=== PATIENT | female | born 1930 | race African-American/Black ===

== ENCOUNTER 2020-08-05 07:32 | Inpatient (IN) | payer MEDICARE ==
[2020-08-05] VITALS (9 sets, daily range): BP systolic 86–137; BP diastolic 48–65
[~2020-08-05] VITALS: Ht 160 cm; Wt 86.0 kg
[2020-08-05] MEDS: MIDAZOLAM 100mg/100ml NS BAG 100 ML IV PRN ×2 (07:50→20:02)
[2020-08-05] MEDS ORDERED: IV NORMAL SALINE 1000ML BAG 1,000 ML IV ONE ×3 (08:00→09:30)
[2020-08-05 08:02] LABS: BASO # 0.1 x10^3/uL (0.0-0.2); BASO % 0 % (0-3); EOS % 0 % (0-3); HEMATOCRIT 48.2 % (36.0-47.0); HEMOGLOBIN 15.9 g/dL (12.0-15.5); LYMPH # 0.9 x10^3/uL (1.0-4.8); LYMPH % 6 % (24-48); MEAN CORPUSCULAR HEMOGLOBIN 30 pg (25-35); MEAN CORPUSCULAR HGB CONC 33 g/dL (31-37); MEAN CORPUSCULAR VOLUME 90 fL (79-100); MONO # 1.4 x10^3/uL (0.0-1.1); MONO % 9 % (0-9); NEUT # 13.1 x10^3/uL (1.8-7.7); NEUT % 85 % (31-73); PLATELET COUNT 200 x10^3/uL (140-400); RED BLOOD COUNT 5.34 x10^6/uL (3.50-5.40); RED CELL DISTRIBUTION WIDTH 14.8 % (11.5-14.5); WHITE BLOOD COUNT 15.5 x10^3/uL (4.0-11.0)
[2020-08-05 08:10] LABS: CALCIUM 11.7 mg/dL (8.5-10.1); CREATININE 4.7 mg/dL (0.6-1.0); GFR 10.6; POTASSIUM 5.1 mmol/L (3.5-5.1)
[2020-08-05 08:12] LABS: PROTHROMBIN TIME PATIENT 17.5 SEC (11.7-14.0)
[2020-08-05] MEDS ORDERED: PIPERACILLIN/TAZOBACTAM 3.375 GM in IV NORMAL SALINE 50ML 50 ML IV ONE (08:15)
--- NOTE | 2020-08-05 08:17 | PHYS DOC ---
Past Medical History Past Medical History: Hypertension General Adult EDM: Chief Complaint: ALTERED MENTAL STATUS HPI: HPI: Patient is a 89 year old female who was brought here by EMS from home after she was found unresponsive in her bed this morning by her granddaughter. Patient was just taken out from the penitentiary in [place], moving up here last week. Patient was admitted at a local hospital in [place] on June 28, 2020 due to confusion and hallucination. She was then transferred to the penitentiary unit in the hospital there. Her family brought her up here on July 27, 2020. She has history of hypertension, she is allergic to codeine and caffeine. Her family stated that for the last few day she had not been eating or drinking much. Her granddaughter checked on her at 3 AM this morning, she was sleeping heavily. Then this morning she checked on her again and the patient was unresponsive. EMS could not put an IV in her, patient was unresponsive when they got there. EMS put a nonrebreather on her and brought her here emergently. Upon arrival to the ER room, patient was in severe respiratory distress, very faint pulse, skin was cold and clammy, not responsive to verbal or pain, no gag reflex, not able to obtain blood pressure.... Review of Systems: Review of Systems: Not able to obtain due to unresponsiveness. Heart Score: Risk Factors: Risk Factors: DM, Current or recent (<one month) smoker, HTN, HLP, family history of CAD, obesity. Risk Scores: Score 0 - 3: 2.5% MACE over next 6 weeks - Discharge Home Score 4 - 6: 20.3% MACE over next 6 weeks - Admit for Clinical Observation Score 7 - 10: 72.7% MACE over next 6 weeks - Early Invasive Strategies Current Medications: Current Medications Medications (Trade) Dose Ordered Sig/Jamie Start Time Stop Time Status Last Admin Dose Admin Chlorhexidine Gluconate (Peridex) 15 ml BID 08/05/20 09:00 Midazolam HCl 100 ml @ 0 mls/hr CONT PRN 08/05/20 08:00 Piperacillin Sod/ Tazobactam Sod 3.375 gm/Sodium Chloride 50 ml @ 100 mls/hr 1X ONCE 08/05/20 08:15 08/05/20 08:44 Sodium Chloride 1,000 ml @ 1,000 mls/hr 1X ONCE 08/05/20 08:00 08/05/20 08:59 Allergies: Allergies: Allergies Coded Allergies Type Severity Reaction Last Updated Verified Unable to Assess 08/05/20 No Physical Exam: PE: Constitutional: appeared cachectic, very frail and toxic. HENT: Normocephalic, atraumatic, bilateral external ears normal, oropharynx moist with thick mucus secretion, whitish mucus in both nares. Eyes: pupils were fixed, nonreactive.... Neck: Normal range of motion with JVD bilaterally... Cardiovascular:tachycardia, regular rhythm, no murmur [] Lungs & Thorax: Bilateral breath sounds with rales, decrease air movement, laborous breathing... Abdomen: Bowel sounds normal, soft, no masses, no pulsatile masses. [] Skin:cold and clammy. Back:no evidence of injury. Extremities: no evidence of injury, Neurologic:patient was unresponsive to pain or verbal stimuli... Psychologic not able to obtain due to unresponsiveness. Current Patient Data: Labs: Laboratory Tests Test 08/05/20 07:50 White Blood Count 15.5 x10^3/uL Red Blood Count 5.34 x10^6/uL Hemoglobin 15.9 g/dL Hematocrit 48.2 % Mean Corpuscular Volume 90 fL Mean Corpuscular Hemoglobin 30 pg Mean Corpuscular Hemoglobin Concent 33 g/dL Red Cell Distribution Width 14.8 % Platelet Count 200 x10^3/uL Neutrophils (%) (Auto) 85 % Lymphocytes (%) (Auto) 6 % Monocytes (%) (Auto) 9 % Eosinophils (%) (Auto) 0 % Basophils (%) (Auto) 0 % Neutrophils # (Auto) 13.1 x10^3/uL Lymphocytes # (Auto) 0.9 x10^3/uL Monocytes # (Auto) 1.4 x10^3/uL Eosinophils # (Auto) 0.0 x10^3/uL Basophils # (Auto) 0.1 x10^3/uL Platelet Estimate Pending Prothrombin Time 17.5 SEC Prothromb Time International Ratio 1.5 Activated Partial Thromboplast Time 30 SEC Sodium Level 149 mmol/L Potassium Level 5.1 mmol/L Chloride Level 110 mmol/L Carbon Dioxide Level 22 mmol/L Anion Gap 17 Blood Urea Nitrogen 89 mg/dL Creatinine 4.7 mg/dL Estimated GFR (Cockcroft-Gault) 10.6 BUN/Creatinine Ratio 19 Glucose Level 149 mg/dL Lactic Acid Level 2.8 mmol/L Calcium Level 11.7 mg/dL Magnesium Level 2.5 mg/dL Total Bilirubin 1.9 mg/dL Aspartate Amino Transf (AST/SGOT) 92 U/L Alanine Aminotransferase (ALT/SGPT) 61 U/L Alkaline Phosphatase 103 U/L Troponin I Quantitative 0.083 ng/mL XN-Ziw-B-Type Natriuretic Peptide 3013 pg/mL Total Protein 6.7 g/dL Albumin 2.6 g/dL Albumin/Globulin Ratio 0.6 Current Medications Medications (Trade) Dose Ordered Sig/Jamie Route PRN Reason Start Time Stop Time Status Last Admin Dose Admin Sodium Chloride 1,000 ml @ 1,000 mls/hr 1X ONCE IV 08/05/20 08:00 08/05/20 08:59 DC 08/05/20 07:42 Chlorhexidine Gluconate (Peridex) 15 ml BID MM 08/05/20 09:00 Midazolam HCl 100 ml @ 0 mls/hr CONT PRN IV SEE PROTOCOL 08/05/20 08:00 08/05/20 07:50 Sodium Chloride 1,000 ml @ 1,000 mls/hr 1X ONCE IV 08/05/20 08:00 08/05/20 08:59 DC 08/05/20 08:00 Piperacillin Sod/ Tazobactam Sod 3.375 gm/Sodium Chloride 50 ml @ 100 mls/hr 1X ONCE IV 08/05/20 08:15 08/05/20 08:44 DC 08/05/20 08:15 Dopamine HCl/ Dextrose 250 ml @ As Directed STK-MED ONCE IV 08/05/20 09:02 08/05/20 09:02 DC Dopamine HCl/ Dextrose 250 ml @ 16.125 mls/ hr 1X ONCE IV 08/05/20 09:00 08/06/20 00:30 08/05/20 09:12 Norepinephrine Bitartrate 8 mg/ Dextrose 258 ml @ 16.641 mls/ hr CONT PRN PRN IV BP, SEE COMMENTS 08/05/20 09:15 08/05/20 09:25 Vancomycin HCl (Vanco Per Pharmacy) 1 each PRN DAILY PRN MC SEE COMMENTS 08/05/20 09:30 UNV Sodium Chloride 1,000 ml @ 1,000 mls/hr 1X ONCE IV 08/05/20 09:30 08/05/20 10:29 DC 08/05/20 10:30 Vancomycin HCl 2 gm/Sodium Chloride 500 ml @ 250 mls/hr 1X ONCE IV 08/05/20 10:00 08/05/20 11:59 08/05/20 10:25 Ondansetron HCl (Zofran) 4 mg PRN Q8HRS PRN IV NAUSEA/VOMITING 08/05/20 10:30 08/06/20 10:29 UNV Sodium Chloride 1,000 ml @ 125 mls/hr Q8H IV 08/05/20 10:26 08/06/20 10:25 UNV EKG: EKG: [] Radiology/Procedures: Radiology/Procedures: Intubation procedure: Indication: Respiratory failure Consent: Unable to give consent due to emergent nature. Medications Used: see nursing note Procedure: The patient was placed in the appropriate position. Intubation was performed BY ILLUMINATOR STUDENT UNDER THE SUPERVISION OF THIS PHYSICIAN, 7.5, ET tube was secured 22 at lip. Initial confirmation of placement included bilateral breath sounds, tube fogging, adequate chest rise, adequate pulse oximetry reading. A chest x-ray to verify correct placement of the tube showed appropriate tube position. Complications: none. [facility] [address] [place] [address] IMAGING REPORT Signed PATIENT: LAURENT SUÁREZ ACCOUNT: [id number] : 1930 LOCATION: ER AGE: 89 SEX: F EXAM STATUS: REG ER ORD. PHYSICIAN: LYNDSEY LEYVA DO REASON: soa, post intubation PROCEDURE: PORTABLE CHEST 1V Examination: PORTABLE CHEST 1V History: Reason: soa, post intubation / Spl. Instructions: / History: Comparison/Correlation: 05/05/2011 Portable Chest X-ray Exam Findings: Portal supine frontal view of the chest was obtained. Tracheal tube terminates 3.7 cm from the alexander. Enteric tube distal extent is not included on this exam. Heart size and pulmonary vasculature are normal. Opacification of the right lateral mid thoracic level is present. Small focal left midthoracic infiltrate No pneumothorax. Right glenohumeral joint degenerative changes present. Impression: Right lateral mid thoracic region consolidation. Small focal left midthoracic infiltrate. Interval follow-up to assess resolution recommended. Electronically signed by: Luis Felipe Clifford MD (08/05/2020 8:39 AM) [id number] Central Line placement Procedure. Indication: Vascular access Consent: emergent consent... Procedure: The patient was positioned appropriately and the skin over the right Interna jugular area was prepped and draped in a sterile fashion. Local anesthesia was not used, patient was unresponsive, intubated, on the ventilator. Ultrasound guidance utilized. A large bore needle was used to identify the vein. A guide wire was then inserted into the vein through the needle. A triple lumen catheter was then inserted into the vessel over the guide wire using the Seldinger technique. All ports showed good, free flowing blood return and were flushed with saline solution. The catheter was then securely fastened to the skin with sutures and covered with a sterile dressing. A post procedure X-ray was ordered. Complications: right side pneumothorax. [facility] [address] [place], [place] [id number] IMAGING REPORT Signed PATIENT: LAURENT SUÁREZ ACCOUNT: [id number] : 1930 LOCATION: ER AGE: 89 SEX: F EXAM STATUS: REG ER ORD. PHYSICIAN: LYNDSEY LEYVA DO REASON: Right side IJ CVL placement PROCEDURE: CHEST AP ONLY Examination: CHEST AP ONLY History: Right side IJ CVL placement Comparison: Portable chest x-ray performed earlier on the same day. Findings: AP portable supine frontal view of the chest was obtained. Right internal jugular catheter terminates at the superior cavoatrial junction. Tracheostomy tube terminates 3.5 cm from the alexander. Enteric tube is identified. The cardiomediastinal silhouette is normal. There is mediastinal shift to the left however. Right-sided pneumothorax appears to be small to moderate in size on this supine image. Pneumothorax is visualized at the right lung base as well as at the apical level. Consolidation of the right lung laterally again noted. Left lung infiltrate previously mentioned is not definitely seen. IMPRESSION: Right-sided tension pneumothorax upon placement of right internal catheter in the interval. Consolidation on the right lateral midlung again seen. 08/05/2020 9:45 AM referring ED physician was informed. Electronically signed by: Luis Felipe Clifford MD (08/05/2020 9:46 AM) [id number] DICTATED and SIGNED BY: LUIS FELIPE CLIFFORD MD DATE: 08/05/20 0946 Chest tube placement procedure: Indication: right side pneumothorax Consent: emergent consent. Procedure: The patient was placed in an appropriate position. Patient was unresponsive, intubated An incision (1 cm) was made at midl auxillary line in the 4th intercostal space. Blunt dissection up and over the rib was performed until access was obtained into the pleural cavity. A COOK 9.0 [place] chest tube was placed and connected to PLEURIVAC. Initial output from the tube was MINIMAL. The tube was sutured in place and the site was covered with an occlusive dressing. All connections were banded. Breath sounds after the procedure WERE HEARD. A chest x-ray was obtained to evaluate placement [X-RAY]. Complications: none. [facility] [address] [place], [place] [id number] IMAGING REPORT Signed PATIENT: LAURENT SUÁREZ ACCOUNT: [id number] : 1930 LOCATION: ER AGE: 89 SEX: F EXAM STATUS: REG ER ORD. PHYSICIAN: LYNDSEY LEYVA DO REASON: chest tube adjustment PROCEDURE: CHEST AP ONLY EXAM: CHEST 1 VIEW History: Chest tube placement COMPARISON: 08/05/2020 TECHNIQUE: Single portable radiograph of the chest Findings/ impression: The ET tube, feeding tube, right internal jugular line, identified. Right-sided chest tube tip is identified in the right apical lung. Trace right apical pneumothorax is identified.. Mild bibasilar lung airspace opacities likely atelectasis or infiltrates. Consolidation or mass in the right midlung zone again identified. Electronically signed by: Wale Acharya MD (08/05/2020 10:23 AM) [id number] DICTATED and SIGNED BY: WALE ACHARYA MD DATE: 08/05/20 1023 Course & Med Decision Making: Course & Med Decision Making Pertinent Labs and Imaging studies reviewed. (See chart for details) Patient is an 89-year-old female who was found unresponsive at home by her family, EMS brought her here for evaluation emergently, no IV access was achieved by EMS, blood pressure was not able to measure. Patient was unresponsive to verbal or painful stimuli, she had no gag reflex upon arrival to ER. Her pupils were fixed and not responsive. A small 22-gauge IV was placed on the right hand, patient was given a liter of saline through the IV. Patient was intubated. After 1 L normal saline, her pulse was very weak, blood pressure was not able to detect. Patient appeared to be in septic shock with clammy skin.. Central venous line was needed urgently so that we can start her on pressors to raise her blood pressure. An attempt to place central venous catheter on the right IJ was not successful because the ultrasound machine in the ED was not functional. An attempt to place the central line in the right IJ was unsuccessful without ultrasound guidance. Interventional radiology department was able to lend us the ultrasound machine. With ultrasound guidance, 7 [place] triple-lumen catheter was able to place in the right IJ without any problem. However post procedure chest x-ray shown large pneumothorax on the right side. A small Cook catheter chest tube was placed on the right side, chest x-ray showed very small apical pneumothorax on the right side. Patient was in septic shock with acute renal failure, hospital-acquired pneumonia, her blood pressure was still very low despite 2 different pressors. Patient condition is very guarded, her family was notified of her condition and prognosis. Discussed with the hospitalist on-call Dr. Guerrero who agrees to admit the patient. Critical care time was [60] minutes which includes time at bedside, spent in discussion of patient's care with specialist and/or family members, with interpretation of laboratory and/or radiological studies and is exclusive of procedures. Dragon Disclaimer: Dragon Disclaimer: This electronic medical record was generated, in whole or in part, using a voice recognition dictation system. Departure Departure Impression: Primary Impression: Respiratory failure Additional Impressions: Septic shock HCAP (healthcare-associated pneumonia) Renal failure Iatrogenic pneumothorax Person under investigation for COVID-19 Disposition: 09 ADMITTED INPT THIS HOSP Admitting Physician: [place] (DR. WARNER) Condition: GUARDED Referrals: NO PCP (PCP) LYNDSEY LEYVA DO Aug 05, 2020 08:17
[2020-08-05 08:29] LABS: ALBUMIN 2.6 g/dL (3.4-5.0); ALBUMIN/GLOBULIN RATIO 0.6 (1.0-1.7); MAGNESIUM 2.5 mg/dL (1.8-2.4); TOTAL BILIRUBIN 1.9 mg/dL (0.2-1.0); TOTAL PROTEIN 6.7 g/dL (6.4-8.2)
--- NOTE | 2020-08-05 08:42 | RAD ---
Examination: PORTABLE CHEST 1V History: Reason: soa, post intubation / Spl. Instructions: / History: Comparison/Correlation: 05/05/2011 Portable Chest X-ray Exam Findings: Portal supine frontal view of the chest was obtained. Tracheal tube terminates 3.7 cm from the alexander. Enteric tube distal extent is not included on this exam. Heart size and pulmonary vasculature are normal. Opacification of the right lateral mid thoracic level is present. Small focal left midthoracic infiltrate No pneumothorax. Right glenohumeral joint degenerative changes present. Impression: Right lateral mid thoracic region consolidation. Small focal left midthoracic infiltrate. Interval follow-up to assess resolution recommended. Electronically signed by: Luis Felipe Juares MD (08/05/2020 8:39 AM) [id number]
[2020-08-05 08:47] LABS: BASE EXCESS ABG -9 mmol/L (-3-3); HCO3 ABG 14 mmol/L (21-28); PCO2 ABG 21 mmHg (35-46); PO2 ABG 470 mmHg (65-108); SAT O2 ABG 99 % (92-99)
[2020-08-05] MEDS ORDERED: CHLORHEXIDINE 0.12% 15 ML MOUTHWASH. MM SCH (09:00)
[2020-08-05] MEDS ORDERED: NOREPINEPHRINE VIAL 8 MG in IV DEXTROSE 5% 250 ML IV PRN (09:15)
[2020-08-05] MEDS ORDERED: VANCOMYCIN PER PHARMACY MC PRN (09:30)
--- NOTE | 2020-08-05 09:49 | RAD ---
Examination: CHEST AP ONLY History: Right side IJ CVL placement Comparison: Portable chest x-ray performed earlier on the same day. Findings: AP portable supine frontal view of the chest was obtained. Right internal jugular catheter terminates at the superior cavoatrial junction. Tracheostomy tube terminates 3.5 cm from the alexander. Enteric tube is identified. The cardiomediastinal silhouette is normal. There is mediastinal shift to the left however. Right-sided pneumothorax appears to be small to moderate in size on this supine image. Pneumothorax is visualized at the right lung base as well as at the apical level. Consolidation of the right lung laterally again noted. Left lung infiltrate previously mentioned is not definitely seen. IMPRESSION: Right-sided tension pneumothorax upon placement of right internal catheter in the interval. Consolidation on the right lateral midlung again seen. 08/05/2020 9:45 AM referring ED physician was informed. Electronically signed by: Luis Felipe Juares MD (08/05/2020 9:46 AM) [id number]
[2020-08-05] MEDS ORDERED: VANCOMYCIN 2 GM in IV NORMAL SALINE 500ML BAG 500 ML IV ONE (10:00)
--- NOTE | 2020-08-05 10:24 | RAD ---
AP chest. HISTORY: Chest tube placement, pneumothorax AP view was taken of the chest. Endotracheal tube and NG tube remain in good position. Central line is unchanged. There is a new right chest tube. There is a small residual pneumothorax with interval improvement compared to the previous film. IMPRESSION: 1. Right chest tube with improved pneumothorax. 2. Other tubes and lines unchanged. Electronically signed by: Freedom Solomon MD (08/05/2020 10:21 AM) [id number]
[2020-08-05] MEDS ORDERED: IV NORMAL SALINE 1000ML BAG 1,000 ML IV SCH ×2 (10:26→19:49)
--- NOTE | 2020-08-05 10:26 | RAD ---
EXAM: CHEST 1 VIEW History: Chest tube placement COMPARISON: 08/05/2020 TECHNIQUE: Single portable radiograph of the chest Findings/ impression: The ET tube, feeding tube, right internal jugular line, identified. Right-sided chest tube tip is identified in the right apical lung. Trace right apical pneumothorax is identified.. Mild bibasilar lung airspace opacities likely atelectasis or infiltrates. Consolidation or mass in the right midlung zone again identified. Electronically signed by: Wale Acharya MD (08/05/2020 10:23 AM) [id number]
[2020-08-05] MEDS ORDERED: ONDANSETRON PF 4 MG/2 ML VIAL. IV PRN (10:30)
[2020-08-05 10:42] LABS: BILIRUBIN,URINE SMALL (NEG); CLARITY,URINE TURBID; NITRITE,URINE POSITIVE (NEG); PH,URINE 5.5 (<5.0-8.0); PROTEIN,URINE NEGATIVE (NEG-TRACE); UROBILINOGEN,URINE 0.2 mg/dL (0.2 mg/dL)
[2020-08-05 10:53] LABS: INFLUENZA A PATIENT NEGATIVE (NEGATIVE); INFLUENZA B PATIENT NEGATIVE (NEGATIVE)
[2020-08-05 10:59] LABS: COLOR,URINE BROWN; HYALINE CASTS, URINE MODERATE /HPF
[2020-08-05 11:03] LABS: AMORPHOUS SEDIMENT,UR PRESENT /HPF; BACTERIA,URINE FEW /HPF (0-FEW)
[2020-08-05 11:16] LABS: FIO2 ABG 100% VENT
[2020-08-05 11:22] LABS: % BANDS 2 % (0-9); % LYMPHS 11 % (24-48); % MONOS 3 % (0-10); % SEGS 84 % (35-66)
[2020-08-05 11:23] LABS: PLT ESTIMATE ADEQUATE (ADEQUATE)
[2020-08-05] MEDS ORDERED: EPINEPHrine SYRINGE 1 MG/10 ML SYRINGE ONE (12:00)
[2020-08-05] MEDS ORDERED: SODIUM BICARB ADULT 8.4% 50 MEQ/50 ML DISP.SYRIN. ONE (12:00)
--- NOTE | 2020-08-05 12:32 | HP ---
ADMIT DATE: 08/05/2020 CHIEF COMPLAINT: Found down. HISTORY OF PRESENT ILLNESS: The patient is a pleasant 89-year-old female who was at a fpc in [place]. Her granddaughter went to pick her up and brought her back to [place]. She has been here for about a month. Her granddaughter states she has been declining each day. Today, when she found the patient, she was unresponsive, 911 was called. Her blood pressure was critically low, they could not even get an IV started. When she got to the ER, we did place a central line, but that caused a little pneumothorax. We have now placed a chest tube. The patient's pressure is 70/40. She is on Levophed and dopamine. She is critically ill. I discussed the case with the ER doctor. We have intubated her. She is going to the ICU. The granddaughter is here, she is considering making the patient DNR, but at this point, she is full code and extremely critically ill. PAST MEDICAL HISTORY: Probable early failure to thrive, hypertension. ALLERGIES: CODEINE. FAMILY HISTORY: Diabetes. SOCIAL HISTORY: She does not drink, smoke or take drugs. She lives with her granddaughter. She was in a fpc recently. MEDICATIONS: Reviewed, please refer to the MRAD. REVIEW OF SYSTEMS: Unable to obtain. The patient is on the vent. PHYSICAL EXAMINATION: VITALS: Within normal limits and are stable. GENERAL: She is sedated. HENT: She has an ET tube in place. EYES: Extraocular muscles are intact, pupils are equally round and reactive to light and accommodation. MUSCULOSKELETAL: Well developed, well nourished, good range of motion. ENDOCRINE: No thyromegaly was palpated. LYMPHATICS: No cervical chain or axillary nodes were noted. HEMATOPOIETIC: No bruising. NECK: Supple, no JVD, no thyromegaly was noted. LUNGS: She has bibasilar crackles. She is on the vent with assist control and 100% FiO2. HEART: RRR, S1, S2 present. Peripheral pulses intact, no obvious murmurs were noted. ABDOMEN: Soft, nontender. Positive bowel sounds no organomegaly, normal bowel sounds. EXTREMITIES: Without any cyanosis, clubbing, or edema. Pedal pulses intact, Homans sign is negative. NEUROLOGIC: She is sedated. PSYCHIATRIC: Unobtainable. SKIN: No ulcerations or rashes, good skin turgor, no jaundice. VASCULAR: Good capillary refill, neurovascular bundle appears to be intact. LABORATORY DATA: White count 15, hemoglobin 15, platelets 200. Electrolytes: Sodium 149, potassium 5.1, chloride 110, bicarbonate 22, BUN 89, creatinine 4.7, glucose 149. Urinalysis, small amount of leukocyte esterase, 11-20 white cells. INR is 1.5. Influenza testing is negative. Chest x-ray shows right mid thoracic consolidation and a small left mid thoracic infiltrate. Post-procedure, she did have a small pneumothorax. ASSESSMENT AND PLAN: Respiratory failure, probable sepsis, critical hypotension, hypoxia, abnormal chest x-ray, renal failure, leukocytosis. The patient is being admitted to the ICU. Consult Pulmonary Medicine. Consult Nephrology. Consult Infectious Disease. IV antibiotics. She is full code for now, but the granddaughter is considering DNR. Swab for COVID-19. IV Levophed, IV dopamine, IV vancomycin. Prognosis extremely guarded at best. She is critically ill. TOTAL TIME: 32 minutes. RAHUL WARNER DO DR: HANY/sri JOB#: [id number] / [id number]
[2020-08-05] MEDS ORDERED: ETOMIDATE 20 MG/10 ML VIAL. IV ONE (12:33)
[2020-08-05] MEDS ORDERED: SUCCINYLCHOLINE 200 MG/10 ML VIAL. ONE (12:34)
[2020-08-05] MEDS: VASOPRESSIN 20 UNIT in IV DEXTROSE 5% 100ML 100 ML IV PRN ×2 (12:45→20:01)
[2020-08-05] MEDS: NOREPINEPHRINE VIAL 32 MG in IV D5W 250ML IV PRN ×3 (12:45→20:02)
--- NOTE | 2020-08-05 13:52 | NUR ---
RECEIVED REPORT FROM VENUS ANDRADE AT BEDSIDE. PT ADMITTED TO ICU ROOM 8 FROM ED. PT INTUBATED AND ON MECHANICAL VENTILATION WITH NG TUBE AND ALLRED IN PLACE. RIGHT CHEST TUBE IN PLACE AND IS TO -20CM SUCTION. PT ON SEVERAL PRESSORS TO KEEP BP UP HOWEVER PT REMAINS HYPOTENSIVE AND CARDIAC RHYTHM IRREGULAR AND FAST. DR. WARNER SPOKE WITH SON RUY ABOUT POOR PROGNOSIS HOWEVER THE PT'S SON WISHES FULL CODE AT THIS TIME. BED LOW AND LOCKED, SIDE RAILS UP X4. WILL CONTINUE TO ASSESS.
[2020-08-05] MEDS ORDERED: PIPERACILLIN/TAZOBACTAM 2.25 GM in IV NORMAL SALINE 50ML 50 ML IV SCH (14:00)
[2020-08-05] MEDS ORDERED: PIP/TAZO PER PHARMACY MC PRN (14:00)
--- NOTE | 2020-08-05 14:05 | CONS ---
DATE OF CONSULTATION: 08/05/2020 REFERRING PHYSICIAN: Dr. Burnett. REASON FOR CONSULTATION: Antibiotic management. HISTORY OF PRESENT ILLNESS: An 89-year-old female who is currently in ICU at [facility] intubated on pressors. Unable to give history. History obtained from medical chart and staff. The patient was brought by EMS from home after she was found unresponsive in her bed this morning by family. The patient is resident of [facility] and was brought here by her family. EMS was unable to get an IV, they placed her on nonrebreather. She was intubated in the ER for severe respiratory distress. The patient was unresponsive on presentation with no gag reflex and not able to obtain any blood pressure, white count was 15.5, temperature of 98.3, blood pressure was 93/59. The patient had chest x-ray, which showed right lateral mid thoracic region consolidation. Subsequent x-ray after right IJ placement showed right sided tension pneumothorax. The patient underwent right sided chest tube placement. She received a dose of IV vancomycin and Zosyn. White count was 15.5, hemoglobin of 15.9, hematocrit 48.2, platelets of 200. Creatinine of 4.7, lactate of 2.8. Troponin of 0.083. BNP of 3013. Albumin of 2.6. ID consult has been requested for further antibiotic management. The patient's family is considering making the patient DNR. The patient is critically ill, on pressure support. PAST MEDICAL HISTORY: History of hypertension. REVIEW OF SYSTEMS: Unable to obtain. ALLERGIES: CODEINE. PHYSICAL EXAMINATION: VITAL SIGNS: Temperature 98.3, pulse 118, respiratory rate 20, pulse 95%. Unable to obtain blood pressure reading per nurse. HEENT: ET tube in place, sedated. NECK: Supple. LUNGS: Coarse breath sounds, CTS in place right side. HEART: S1, S2. ABDOMEN: Nondistended, soft. EXTREMITIES: No edema. NEUROLOGIC: Sedated and intubated. PSYCHIATRIC: Unobtainable. DERMATOLOGIC: No generalized rash. LABORATORY DATA: WBC 15.5, hemoglobin 15.9, hematocrit 48.2, platelets 200. Sodium 149, potassium 5.1, chloride 110, bicarbonate 22, BUN 89, creatinine 4.7 and glucose 149. Lactate 2.8, calcium 11.7, magnesium 2.5, total bilirubin 1.9, AST 92, ALT 61. BNP 3013. Troponin is mildly elevated. Albumin 2.9. UA, small leukocyte esterase, 11-20 wbc's. Influenza screen negative. COVID-19 pending. IMAGING: Chest x-ray: ET feeding tube, right internal jugular line identified right sided chest tube tip is identified in the right apical lung, trace right apical pneumothorax, mild bibasilar airspace opacities, consolidation or mass in the right midlung. MICROBIOLOGY: Blood culture pending. Urine culture pending. COVID-19 pending. IMPRESSION: 1. Septic shock, source respiratory. 2. Acute hypoxic respiratory failure, status post intubation. 3. Right lung pneumonia. 4. Right pneumothorax, status post CTS. 5. Acute kidney injury. 6. Congestive heart failure. 7. Encephalopathy. RECOMMENDATIONS: 1. Family is considering transition to DNR or comfort measures per team. Final decision pending at this time. 2. Follow up COVID-19. 3. Continue Zosyn, renal dosing. 4. Status post one dose of vancomycin. 5. Critically ill. 6. Prognosis is very poor. Discussed with RN. Thank you for allowing me to participate in this patient's care. If you have any questions, do not hesitate to contact me. SADE HADDAD MD DR: MARIA C/sri JOB#: [id number] / [id number]
--- NOTE | 2020-08-05 14:21 | NUR ---
CONTACT [employer] TO REQUEST ARTERIAL LINE PLACEMENT, UNABLE TO OBTAIN CONSISTENT BLOOD PRESSURE READING.
[2020-08-05] MEDS ORDERED: DIGOXIN IV 500 MCG/2 ML AMPUL. IV ONE (16:00)
--- NOTE | 2020-08-05 17:07 | PDOC ---
PULMONARY PROGRESS NOTES DATE: 08/05/20 TIME: 17:06 Vitals Vital Signs Date Time Temp Pulse Resp B/P (MAP) Pulse Ox O2 Delivery O2 Flow Rate FiO2 08/05/20 16:26 98.3 141 131/65 (87) 98 98.3 08/05/20 16:00 Mechanical Ventilator 08/05/20 15:29 20 08/05/20 07:32 15.0 Labs Laboratory Tests Test 08/05/20 07:50 08/05/20 08:25 08/05/20 08:40 08/05/20 10:05 White Blood Count 15.5 x10^3/uL (4.0-11.0) Red Blood Count 5.34 x10^6/uL (3.50-5.40) Hemoglobin 15.9 g/dL (12.0-15.5) Hematocrit 48.2 % (36.0-47.0) Mean Corpuscular Volume 90 fL (79-100) Mean Corpuscular Hemoglobin 30 pg (25-35) Mean Corpuscular Hemoglobin Concent 33 g/dL (31-37) Red Cell Distribution Width 14.8 % (11.5-14.5) Platelet Count 200 x10^3/uL (140-400) Neutrophils (%) (Auto) 85 % (31-73) Lymphocytes (%) (Auto) 6 % (24-48) Monocytes (%) (Auto) 9 % (0-9) Eosinophils (%) (Auto) 0 % (0-3) Basophils (%) (Auto) 0 % (0-3) Neutrophils # (Auto) 13.1 x10^3/uL (1.8-7.7) Lymphocytes # (Auto) 0.9 x10^3/uL (1.0-4.8) Monocytes # (Auto) 1.4 x10^3/uL (0.0-1.1) Eosinophils # (Auto) 0.0 x10^3/uL (0.0-0.7) Basophils # (Auto) 0.1 x10^3/uL (0.0-0.2) Segmented Neutrophils % 84 % (35-66) Band Neutrophils % 2 % (0-9) Lymphocytes % 11 % (24-48) Monocytes % 3 % (0-10) Platelet Estimate Adequate (ADEQUATE) Prothrombin Time 17.5 SEC (11.7-14.0) Prothromb Time International Ratio 1.5 (0.8-1.1) Activated Partial Thromboplast Time 30 SEC (24-38) Sodium Level 149 mmol/L (136-145) Potassium Level 5.1 mmol/L (3.5-5.1) Chloride Level 110 mmol/L (98-107) Carbon Dioxide Level 22 mmol/L (21-32) Anion Gap 17 (6-14) Blood Urea Nitrogen 89 mg/dL (7-20) Creatinine 4.7 mg/dL (0.6-1.0) Estimated GFR (Cockcroft-Gault) 10.6 BUN/Creatinine Ratio 19 (6-20) Glucose Level 149 mg/dL (70-99) Lactic Acid Level 2.8 mmol/L (0.4-2.0) Calcium Level 11.7 mg/dL (8.5-10.1) Magnesium Level 2.5 mg/dL (1.8-2.4) Total Bilirubin 1.9 mg/dL (0.2-1.0) Aspartate Amino Transf (AST/SGOT) 92 U/L (15-37) Alanine Aminotransferase (ALT/SGPT) 61 U/L (14-59) Alkaline Phosphatase 103 U/L (46-116) Troponin I Quantitative 0.083 ng/mL (0.000-0.055) PA-Oam-K-Type Natriuretic Peptide 3013 pg/mL (0-449) Total Protein 6.7 g/dL (6.4-8.2) Albumin 2.6 g/dL (3.4-5.0) Albumin/Globulin Ratio 0.6 (1.0-1.7) Influenza Type A Antigen Negative (NEGATIVE) Influenza Type B Antigen Negative (NEGATIVE) O2 Saturation 99 % (92-99) Arterial Blood pH 7.43 (7.35-7.45) Arterial Blood pCO2 at Patient Temp 21 mmHg (35-46) Arterial Blood pO2 at Patient Temp 470 mmHg (65-108) Arterial Blood HCO3 14 mmol/L (21-28) Arterial Blood Base Excess -9 mmol/L (-3-3) FiO2 100% vent Urine Collection Type Unknown Urine Color Brown Urine Clarity Turbid Urine pH 5.5 (<5.0-8.0) Urine Specific Central 1.015 (1.000-1.030) Urine Protein Negative mg/dL (NEG-TRACE) Urine Glucose (UA) Negative mg/dL (NEG) Urine Ketones (Stick) Negative mg/dL (NEG) Urine Blood Large (NEG) Urine Nitrite Positive (NEG) Urine Bilirubin Small (NEG) Urine Urobilinogen Dipstick 0.2 mg/dL (0.2 mg/dL) Urine Leukocyte Esterase Small (NEG) Urine RBC 3-5 /HPF (0-2) Urine WBC 11-20 /HPF (0-4) Urine Squamous Epithelial Cells Few /LPF Urine Amorphous Sediment Present /HPF Urine Bacteria Few /HPF (0-FEW) Urine Hyaline Casts Moderate /HPF Laboratory Tests Test 08/05/20 07:50 08/05/20 08:25 08/05/20 08:40 08/05/20 10:05 White Blood Count 15.5 x10^3/uL (4.0-11.0) Red Blood Count 5.34 x10^6/uL (3.50-5.40) Hemoglobin 15.9 g/dL (12.0-15.5) Hematocrit 48.2 % (36.0-47.0) Mean Corpuscular Volume 90 fL (79-100) Mean Corpuscular Hemoglobin 30 pg (25-35) Mean Corpuscular Hemoglobin Concent 33 g/dL (31-37) Red Cell Distribution Width 14.8 % (11.5-14.5) Platelet Count 200 x10^3/uL (140-400) Neutrophils (%) (Auto) 85 % (31-73) Lymphocytes (%) (Auto) 6 % (24-48) Monocytes (%) (Auto) 9 % (0-9) Eosinophils (%) (Auto) 0 % (0-3) Basophils (%) (Auto) 0 % (0-3) Neutrophils # (Auto) 13.1 x10^3/uL (1.8-7.7) Lymphocytes # (Auto) 0.9 x10^3/uL (1.0-4.8) Monocytes # (Auto) 1.4 x10^3/uL (0.0-1.1) Eosinophils # (Auto) 0.0 x10^3/uL (0.0-0.7) Basophils # (Auto) 0.1 x10^3/uL (0.0-0.2) Segmented Neutrophils % 84 % (35-66) Band Neutrophils % 2 % (0-9) Lymphocytes % 11 % (24-48) Monocytes % 3 % (0-10) Platelet Estimate Adequate (ADEQUATE) Prothrombin Time 17.5 SEC (11.7-14.0) Prothromb Time International Ratio 1.5 (0.8-1.1) Activated Partial Thromboplast Time 30 SEC (24-38) Sodium Level 149 mmol/L (136-145) Potassium Level 5.1 mmol/L (3.5-5.1) Chloride Level 110 mmol/L (98-107) Carbon Dioxide Level 22 mmol/L (21-32) Anion Gap 17 (6-14) Blood Urea Nitrogen 89 mg/dL (7-20) Creatinine 4.7 mg/dL (0.6-1.0) Estimated GFR (Cockcroft-Gault) 10.6 BUN/Creatinine Ratio 19 (6-20) Glucose Level 149 mg/dL (70-99) Lactic Acid Level 2.8 mmol/L (0.4-2.0) Calcium Level 11.7 mg/dL (8.5-10.1) Magnesium Level 2.5 mg/dL (1.8-2.4) Total Bilirubin 1.9 mg/dL (0.2-1.0) Aspartate Amino Transf (AST/SGOT) 92 U/L (15-37) Alanine Aminotransferase (ALT/SGPT) 61 U/L (14-59) Alkaline Phosphatase 103 U/L (46-116) Troponin I Quantitative 0.083 ng/mL (0.000-0.055) VZ-Oit-G-Type Natriuretic Peptide 3013 pg/mL (0-449) Total Protein 6.7 g/dL (6.4-8.2) Albumin 2.6 g/dL (3.4-5.0) Albumin/Globulin Ratio 0.6 (1.0-1.7) Influenza Type A Antigen Negative (NEGATIVE) Influenza Type B Antigen Negative (NEGATIVE) O2 Saturation 99 % (92-99) Arterial Blood pH 7.43 (7.35-7.45) Arterial Blood pCO2 at Patient Temp 21 mmHg (35-46) Arterial Blood pO2 at Patient Temp 470 mmHg (65-108) Arterial Blood HCO3 14 mmol/L (21-28) Arterial Blood Base Excess -9 mmol/L (-3-3) FiO2 100% vent Urine Collection Type Unknown Urine Color Brown Urine Clarity Turbid Urine pH 5.5 (<5.0-8.0) Urine Specific Central 1.015 (1.000-1.030) Urine Protein Negative mg/dL (NEG-TRACE) Urine Glucose (UA) Negative mg/dL (NEG) Urine Ketones (Stick) Negative mg/dL (NEG) Urine Blood Large (NEG) Urine Nitrite Positive (NEG) Urine Bilirubin Small (NEG) Urine Urobilinogen Dipstick 0.2 mg/dL (0.2 mg/dL) Urine Leukocyte Esterase Small (NEG) Urine RBC 3-5 /HPF (0-2) Urine WBC 11-20 /HPF (0-4) Urine Squamous Epithelial Cells Few /LPF Urine Amorphous Sediment Present /HPF Urine Bacteria Few /HPF (0-FEW) Urine Hyaline Casts Moderate /HPF Impression . Full consult dictated Acute respiratory failure secondary to septic shock MARGAUX PENNINGTON MD Aug 05, 2020 17:07
--- NOTE | 2020-08-05 17:28 | CONS ---
DATE OF CONSULTATION: 08/05/2020 ATTENDING PHYSICIAN: Cydney Burnett DO REASON FOR CONSULTATION: The patient is seen in pulmonary consultation at the request of Dr. Burnett for septic shock, respiratory failure, vent management. HISTORY OF PRESENT ILLNESS: The patient is an 89-year-old that lives with family. Apparently, the patient was up in a detention in [place]. She was recently transported to [facility] to be with her family. EMS was summoned after the patient was found unresponsive by her granddaughter. The patient in the past had been seen here in 07/27 with hypertension, ALLERGIC REACTION TO CODEINE AND CAFFEINE. Family stated that she was doing better the last couple of days. Then she became sleepy. They found her unresponsive. The patient is severely hypotensive. She is currently being treated for septic shock. She was evaluated by Infectious Disease Service and is currently on Zosyn and vancomycin. She is receiving IV fluids. She is on Levophed. No further history is obtained. Most of the history is obtained by reviewing the current medical records. Her arterial blood gas revealed a pH of 7.43, PaCO2 of 21, pO2 of 470. Serology for influenza was negative. White count was elevated. Hemoglobin and hematocrit were noted. INR was 1.5. Electrolytes were deranged. BUN and creatinine elevated. AST and ALT were elevated. Albumin was low. Chest x-ray revealed partially consolidated area in the right lung. PAST MEDICAL HISTORY: Otherwise remarkable for hypertension. REVIEW OF SYSTEMS: Unobtainable secondary to the patient's condition. ALLERGIES: CODEINE. CURRENT MEDICATION: List was reviewed. PHYSICAL EXAMINATION: GENERAL: The patient is currently in the intensive care unit. She is on pressors. VITAL SIGNS: Noted, O2 saturation greater than 92%. LUNGS: With scattered rhonchi. CARDIOVASCULAR: Tachycardic, S1, S2, no S3. ABDOMEN: Soft. EXTREMITIES: No clubbing, cyanosis. Minimal edema. NEUROLOGIC: The patient was sedated. Labs and chest x-ray as indicated above. IMPRESSION: 1. Acute hypoxemic respiratory failure secondary to septic shock. 2. Septic shock. 3. Abnormal x-ray compatible with gram-positive or gram-negative pneumonia. 4. Multiple organ failure including liver and kidneys. 5. Acute kidney failure. 6. Severe protein malnutrition, present upon admission. 7. Elevated troponin, suspect demand ischemia. 8. Iatrogenic pneumothorax. 9. Acute metabolic toxic encephalopathy. PLAN: 1. Continue current vent settings, titrate FiO2 down. 2. Empiric antibiotics. 3. Decrease minute ventilation. 4. IV fluids. 5. Pressors to maintain mean arterial pressure above 60. 6. Consult Nephrology. 7. Continue with chest tube placement. Repeat x-ray in the a.m. 8. Rule out COVID-19. Total cumulative critical care time from 4:15 p.m. to 5:06 p.m. I do appreciate the privilege in sharing in the patient's care. MARGAUX PENNINGTON MD DR: MICHELA/sri JOB#: [id number] / [id number]
--- NOTE | 2020-08-05 17:37 | EKG ---
[facility] [address] [place] [address] Test Date: 2020-08-05 Test Time: 08:26:05 Pat Name: LAURENT SUÁREZ Department: Room: Gender: F Air Pumper: : [id number] Requested By: LYNDSEY LEYVA Order Number: [id number] Reading MD: Measurements Intervals [place] Rate: 108 P: 81 OK: 116 QRS: 82 QRSD: 92 T: -76 QT: 326 QTc: 441 Interpretive Statements SINUS TACHYCARDIA ATRIAL PREMATURE COMPLEX(ES) ST & T ABNORMALITY, CONSIDER INFERIOR ISCHEMIA OR LEFT VENTRICULAR STRAIN T ABNORMALITY IN ANTERIOR LEADS ABNORMAL ECG RI6.02 No previous ECG available for comparison
--- NOTE | 2020-08-05 20:00 | NUR ---
Nursing Note: Notified Dr. Ortiz and Dr. Barnett of patient condition. Bp is dropping despite being on Levo,vaso. Fluid bolus given. Attempted to call family but unable to get ahold, left voicemails. Pt went asystole and partha troy called, spoke with Son and grandaughter. See partha blue sheet. Pt , time of at 2053.
[2020-08-05] MEDS ORDERED: ALBUMIN HUMAN 5% 500 ML IV ONE (21:00)
[2020-08-07] MEDS ORDERED: VANCOMYCIN RANDOM LEVEL. MC ONE (10:00)
== END 2020-08-06 02:06 | DRG 871 ==
LOC: ER 07:32 → 1 WEST ICU 10:30
PROVIDERS: ADMIT Internal Medicine; ATTEND Internal Medicine
PROC: 5A1935Z Respiratory Ventilation, Less than 24 Consecutive Hours (ICD-10-PCS; principal; 2020-08-05)
PROC: 5A09357 Assistance with Respiratory Ventilation, Less than 24 Consecutive Hours, Continuous Positive Airway Pressure (ICD-10-PCS; 2020-08-05)
PROC: 02HV33Z Insertion of Infusion Device into Superior Vena Cava, Percutaneous Approach (ICD-10-PCS; 2020-08-05)
PROC: B548ZZA Ultrasonography of Superior Vena Cava, Guidance (ICD-10-PCS; 2020-08-05)
PROC: 0BH17EZ Insertion of Endotracheal Airway into Trachea, Via Natural or Artificial Opening (ICD-10-PCS; 2020-08-05)
PROC: 0W9930Z Drainage of Right Pleural Cavity with Drainage Device, Percutaneous Approach (ICD-10-PCS; 2020-08-05)
DX: A41.9 Sepsis, unspecified organism (principal); E43 Unspecified severe protein-calorie malnutrition; G92 Toxic encephalopathy; J15.6 Pneumonia due to other Gram-negative bacteria; J96.01 Acute respiratory failure with hypoxia; R65.21 Severe sepsis with septic shock; J95.811 Postprocedural pneumothorax; N17.9 Acute kidney failure, unspecified; I24.8 Other forms of acute ischemic heart disease; I11.0 Hypertensive heart disease with heart failure; I50.9 Heart failure, unspecified; Y95 Nosocomial condition; Y84.8 Other medical procedures as the cause of abnormal reaction of the patient, or of later complication, without mention of misadventure at the time of the procedure; Z20.828 Contact with and (suspected) exposure to other viral communicable diseases; Z83.3 Family history of diabetes mellitus; Z88.5 Allergy status to narcotic agent; Z68.33 Body mass index [BMI] 33.0-33.9, adult; Z93.0 Tracheostomy status
CPT/HCPCS: 36415; 36600; 71045; 80053; 81001; 82805; 83605; 83735; 83880; 84484; 85007; 85025; 85610; 85730; 87040; 87077; 87086; 87205; 87804; 93005; 94002; J0171; J1160; J1265; J2250; J2543; J3370; J3490; J7030; J7040; J7060; U0003; G0378